=== PATIENT | male | born 1950 | race Caucasian/White ===

== ENCOUNTER → 2020-01-17 | Outpatient (CLI) | payer MEDICARE | END | disposition home or self-care (01) | LOC: SHCH 13:55 | PROVIDERS: ATTEND Internal Medicine Cardiovascular Disease | DX: R00.1 Bradycardia, unspecified (principal); R07.9 Chest pain, unspecified | CPT/HCPCS: 93306; 93356 ==

== ENCOUNTER → 2020-01-22 | Outpatient (CLI) | payer MEDICARE ==
[~2020-01-22] MED LIST: REGADENOSON 0.4 MG/5 ML PF SYG IVP SCH
== END | disposition home or self-care (01) ==
LOC: SHCH 08:03
PROVIDERS: ATTEND Internal Medicine Cardiovascular Disease
DX: R00.1 Bradycardia, unspecified (principal); R07.9 Chest pain, unspecified
CPT/HCPCS: 78452; 93017; 96374; A9500 ×2; J2785

== ENCOUNTER 2020-03-18 05:30 | Observation (INO) | payer MEDICARE ==
[2020-03-14 10:32] LABS: APPEARANCE,URINE Clear (CLEAR); BASOPHILS % (AUTO) 0.8 % (0.0-5.0); BILIRUBIN,URINE Negative (NEGATIVE); COLOR,URINE Yellow (YELLOW); EOSINOPHILS % (AUTO) 6.3 % (0.0-8.0); GLUCOSE, URINE (UA) Negative (NEGATIVE); HEMATOCRIT 42.9 % (42-54); KETONES,URINE Negative (NEGATIVE); LEUKOCYTE ESTERASE ,URINE Negative (NEGATIVE); LYMPHOCYTES % (AUTO) 22.1 % (21.0-51.0); MEAN CORPUSCULAR HEMOGLOBIN 31.2 pg (27.0-33.0); MEAN CORPUSCULAR HGB CONC 34.5 g/dL (32.0-36.0); MEAN CORPUSCULAR VOLUME 90.5 fL (79-99); MONOCYTES % (AUTO) 9.8 % (3.0-13.0); NEUTROPHILS % (AUTO) 60.7 % (40.0-77.0); NITRATE,URINE Negative (NEGATIVE); OCCULT BLOOD,URINE Negative (NEGATIVE); PLATELET COUNT (AUTO) 184 K/uL (130-400); PROTEIN,URINE Negative (NEGATIVE); RED BLOOD CELL COUNT(AUTO) 4.74 MIL/uL (4.50-6.20); RED CELL DISTRIBUTION WIDTH 13.1 % (11.0-15.5); WHITE BLOOD COUNT (AUTO) 6.1 K/uL (4.8-10.8)
[2020-03-14 10:46] LABS: CREATININE 0.9 mg/dL (0.5-1.5); POTASSIUM 3.6 mmol/L (3.5-5.1)
[2020-03-14 10:51] LABS: INR 0.97 (0.85-1.15); PARTIAL THROMBOPLASTIN TIME 25.6 SEC (26.3-35.5); PROTHROMBIN TIME 10.5 SEC (9.6-11.6)
[~2020-03-18] VITALS: Ht 190.5 cm; Wt 91.6 kg
[2020-03-18] VITALS (13 sets, daily range): BP systolic 106–138; BP diastolic 65–84
[~2020-03-18 05:30] MED LIST changes: +AMLO5TAB9 PO; +ASPI-1443 PO; +ESOM20CA31 PO; +ISOS30TA6 PO; +LISI1TAB29 PO; +METO50TA18 PO; +MULT-1367 PO; +NITR0.4T50 SL; -REGADENOSON 0.4 MG/5 ML PF SYG IVP SCH; +saw palmetto PO
--- NOTE | 2020-03-18 06:00 | NUR ---
PREOP PT ARRIVED AMBULATORY IN NO DISTRESS FOR LH. PT ORIENTED TO ROOM AND CALL LIGHT. WILL CONTINUE TO MONITOR PT
--- NOTE | 2020-03-18 07:20 | NUR ---
[facility] PT TAKEN TO [facility] VIA BED IN NO DISTRESS BY CHANDA SIU RN
[2020-03-18] MEDS ORDERED: HEPARIN SODIUM 1000UNIT/ML 10ML VIAL ONE (07:32)
[2020-03-18] MEDS ORDERED: LIDOCAINE HCL 2% 20ML ONE (07:32)
[2020-03-18] MEDS ORDERED: IOHEXOL 350 MG/ML 100ML INFUS..BTL IV ONE (07:32)
[2020-03-18] MEDS ORDERED: IOHEXOL-350 75 ML VIAL IV ONE (07:32)
[2020-03-18] MEDS ORDERED: SODIUM CHLORIDE 0.9% 1000ML 1,000 ML IV SCH (08:00)
[2020-03-18] MEDS ORDERED: ASPIRIN 325MG EC TAB 325 MG TABLET.DR PO ONE (08:06)
[2020-03-18] MEDS ORDERED: CLOPIDOGREL BISULFATE 300 MG TAB ONE ×2 (08:06)
[2020-03-18] MEDS ORDERED: PHARMACY COMMUNICATION MISC SCH (08:30)
[2020-03-18] MEDS ORDERED: MORPHINE SULFATE 5 MG/ML VIAL IVP PRN (08:30)
[2020-03-18] MEDS ORDERED: ONDANSETRON HCL 4 MG/2 ML VIAL IVP PRN ×2 (08:30)
[2020-03-18] MEDS ORDERED: NITROGLYCERIN 0.4 MG SL TAB SL SCH (09:15)
[2020-03-18 11:08] LABS: CHOLESTEROL 154 mg/dL (<200); HDL CHOLESTEROL 75 mg/dL (29-71); LDL DIRECT 103 mg/dL (0-99); TRIGLYCERIDES 60 mg/dL (30-200)
[2020-03-18] MEDS: METOPROLOL TARTRATE 50 MG TAB PO SCH (19:56)
[2020-03-19 03:45] VITALS: BP 120/70
[2020-03-19 07:00] VITALS: BP 133/74
[2020-03-19] MEDS ORDERED: ASPIRIN 81 MG EC TAB PO SCH (09:00)
[2020-03-19] MEDS ORDERED: MULTIVITAMIN TABLET PO SCH (09:00)
[2020-03-19] MEDS ORDERED: LISINOPRIL 20 MG TABLET PO SCH (09:00)
[2020-03-19] MEDS ORDERED: AMLODIPINE BESYLATE 5 MG TAB PO SCH (09:00)
[2020-03-19] MEDS ORDERED: CLOPIDOGREL BISULFATE 75 MG TAB PO SCH (09:00)
[2020-03-19] MEDS ORDERED: NON-FORMULARY MEDICATION 1 EACH (Lisinopril/Hydrochlorothiazide (Lisinopril-Hctz 20-25 mg PO SCH (09:00)
[2020-03-19] MEDS ORDERED: HYDROCHLOROTHIAZIDE 25 MG TABLET PO SCH (09:00)
[2020-03-19] MEDS ORDERED: ISOSORBIDE MONO 30MG TAB SR PO SCH (09:00)
[2020-03-19] MEDS ORDERED: SAW PALMETTO PO SCH ×2 (09:00)
[2020-03-19] MEDS ORDERED: NON-FORMULARY MEDICATION 1 EACH (Multivitamin 1 EACH) PO SCH (09:00)
[2020-03-19] MEDS: METOPROLOL TARTRATE 50 MG TAB PO SCH (10:29)
[2020-03-19 11:00] VITALS: BP 120/68
--- NOTE | 2020-03-19 12:50 | NUR ---
0142 PATIENT SIGNED [facility] LETTER, I FAXED [facility]O LETTER TO [id number] AND PLACED IN CHART UNDER CONSENT TAB.
== END 2020-03-19 12:20 | disposition home or self-care (01) ==
LOC: DAH 05:30 → 4CH 05:31 → DAH 05:31
PROVIDERS: ADMIT Internal Medicine; ATTEND Internal Medicine
DX: I25.119 Atherosclerotic heart disease of native coronary artery with unspecified angina pectoris (principal); I11.9 Hypertensive heart disease without heart failure; E78.5 Hyperlipidemia, unspecified
CPT/HCPCS: 36415 ×2; 71045; 80048; 80061; 81003; 85025; 85610; 85730 ×3; 93005; 93458; A4215; A4216; A4221; A4222; A4223 ×3; A4606; A4663; C1769; C1874; C1887; C1894; C9600; G0378 ×20; J1644 ×2; J3490; J7030 ×2; Q9965; Q9967 ×2

== ENCOUNTER → 2021-10-23 | Outpatient (CLI) | payer MEDICARE ==
[~2021-10-23] VITALS: Ht 190.5 cm; Wt 90.7 kg
[~2021-10-23] MED LIST changes: +AMLO-257 PO; -AMLO5TAB9 PO; -ESOM20CA31 PO; -ISOS30TA6 PO; +ISOS30TA92 PO; -LISI1TAB29 PO; +LISI1TAB53 PO; +REGADENOSON 0.4 MG/5 ML PF SYG IVP SCH
== END | disposition home or self-care (01) ==
LOC: SHCH 08:47
PROVIDERS: ATTEND Internal Medicine Cardiovascular Disease
DX: I49.3 Ventricular premature depolarization (principal); R07.9 Chest pain, unspecified
CPT/HCPCS: 78452; 93017; 96374; A9500 ×2; J2785